=== PATIENT | female | born 1940 | race Native Hawaiian/Other Pacific Islander ===

== ENCOUNTER 2017-05-02 09:41 | Emergency (ER) | payer OTHER, MEDICARE ==
[~2017-05-02] VITALS: Ht 170.2 cm; Wt 90.7 kg
[~2017-05-02 09:41] MED LIST: GLIP10TA55 PO; INSU100I2; LEVOTHROID75 MCG PO; LISI20TA24 PO; METOCLOPRAM10 MG PO; NOVOLOG100 MG/ML SC; PROMETHAZINE25 MG OR; SB OMEPRAZOLE20 MG OR; SIMV40TA57; SIMV40TA57 PO; TAMOXIFEN20 MG OR; VENLAFAXINE75 M2 PO
[2017-05-02 10:45] VITALS: BP 173/91; TEMP 98
== END 2017-05-02 11:10 | disposition home or self-care (01) ==
LOC: ED 09:41
DX: M79.672 Pain in left foot (principal)

== ENCOUNTER 2019-03-28 08:31 | Emergency (ER) | payer OTHER, MEDICARE ==
[~2019-03-28] VITALS: Ht 167.6 cm; Wt 82.6 kg
[2019-03-28 08:40] VITALS: TEMP 97.5
[2019-03-28 09:19] VITALS: BP 186/85
== END 2019-03-28 09:23 | disposition home or self-care (01) ==
LOC: ED 08:31
PROC: 3E0233Z Introduction of Anti-inflammatory into Muscle, Percutaneous Approach (ICD-10-PCS; principal; 2019-03-28)
PROC: 3E023BZ Introduction of Anesthetic Agent into Muscle, Percutaneous Approach (ICD-10-PCS; 2019-03-28)
DX: M62.830 Muscle spasm of back (principal); M54.89 Other dorsalgia; M25.511 Pain in right shoulder
CPT/HCPCS: 96372; 99282; J1020

== ENCOUNTER 2019-05-20 09:40 | Outpatient (CLI) | payer OTHER, MEDICARE | END 2019-05-20 20:06 | disposition home or self-care (01) | LOC: RAD 09:40 | DX: M25.512 Pain in left shoulder (principal); M25.511 Pain in right shoulder; M25.531 Pain in right wrist; M54.2 Cervicalgia; M54.5 Low back pain; M25.552 Pain in left hip; W18.39XA Other fall on same level, initial encounter; Y93.89 Activity, other specified; Y92.89 Other specified places as the place of occurrence of the external cause ==

== ENCOUNTER 2019-08-14 10:13 | Emergency (ER) | payer OTHER, MEDICARE ==
[~2019-08-14] VITALS: Ht 167.6 cm; Wt 82.6 kg
[2019-08-14 10:32] VITALS: TEMP 97.3
[2019-08-14 11:50] LABS: POTASSIUM 3.5 mmol/L (3.6-5.2)
[2019-08-14 11:55] LABS: PLATELET COUNT 101 K/uL (152-353)
[2019-08-14 14:25] VITALS: BP 163/90
== END 2019-08-14 14:25 | disposition home or self-care (01) ==
LOC: ED 10:13
PROVIDERS: Family Medicine
DX: M10.9 Gout, unspecified (principal); E87.6 Hypokalemia
CPT/HCPCS: 80053; 84550; 85027; 96372; 99283; J1885

== ENCOUNTER 2020-02-17 10:18 | Outpatient (CLI) | payer OTHER, MEDICARE | END 2020-02-17 19:17 | disposition home or self-care (01) | LOC: MRI 10:18 | DX: M84.375A Stress fracture, left foot, initial encounter for fracture (principal) ==

== ENCOUNTER 2022-12-25 10:56 | Outpatient (CLI) | payer OTHER, MEDICARE | END 2022-12-25 20:58 | disposition home or self-care (01) | LOC: RAD 10:56 | PROVIDERS: ATTEND Internal Medicine | DX: R60.0 Localized edema (principal); R29.6 Repeated falls ==

== ENCOUNTER 2023-05-10 08:20 | Outpatient (CLI) | payer OTHER, MEDICARE | END 2023-05-10 20:42 | disposition home or self-care (01) | LOC: NM 08:20 | PROVIDERS: ATTEND Internal Medicine | DX: M89.8X8 Other specified disorders of bone, other site (principal) | CPT/HCPCS: A9561 ==

== ENCOUNTER 2023-06-18 13:55 | Outpatient (CLI) | payer OTHER, MEDICARE | END 2023-06-18 18:57 | disposition home or self-care (01) | LOC: CT 13:55 | PROVIDERS: ATTEND Nurse Practitioner Family | DX: S09.8XXA Other specified injuries of head, initial encounter (principal); R42 Dizziness and giddiness; Y92.89 Other specified places as the place of occurrence of the external cause ==